=== PATIENT | female | born 1950 | race Caucasian/White ===

== ENCOUNTER → 2025-01-19 | Outpatient (CLI) | payer MEDICARE, OTHER ==
[~2025-01-19] MED LIST: ACET500 PO; ASPI81CH PO; CITALOPRAM HBR10 MG PO; DOCU100 PO; EUTHYROX50 MCG PO; OMEP20ER PO; OXAYDO5 M2 PO
[2025-01-19 15:10] LABS: BASOPHILS ABSOLUTE AUTO 0.06 K/mm3 (0.00-0.23); BASOPHILS PERCENT AUTO 1 % (0-2); EOSINOPHILS ABSOLUTE AUTO 0.10 K/mm3 (0.00-0.68); EOSINOPHILS PERCENT AUTO 1 % (0-6); Hematocrit 39.7 % (33.0-51.0); Hemoglobin 12.9 g/dL (11.5-16.0); IMMATURE GRAN ABSOLUTE AUTO 0.03 K/mm3 (0.00-0.10); IMMATURE GRAN PERCENT AUTO 0 % (0-1); LYMPHOCYTES ABSOLUTE AUTO 1.62 K/mm3 (0.84-5.20); LYMPHOCYTES PERCENT AUTO 15 % (21-46); MONOCYTES ABSOLUTE AUTO 0.66 K/mm3 (0.16-1.47); MONOCYTES PERCENT AUTO 6 % (4-13); Mean Corpuscular HGB Conc 32.5 g/dL (31.5-36.5); Mean Corpuscular Volume 87 fL (80-100); NEUTROPHILS ABSOLUTE AUTO 8.05 K/mm3 (1.96-9.15); NEUTROPHILS PERCENT AUTO 76 % (41-73); NRBC ABSOLUTE 0.00 K/mm3 (0.00-0.02); NRBC Auto 0.0 /100 WBC (0.0-0.2); Platelet Count 390 K/mm3 (150-400); RDW Coefficient Variation 13.7 % (11.7-14.2); RDW Standard Deviation 43.2 fL (35.1-46.3)
[2025-01-19 15:56] LABS: Anion Gap 9.0 mmol/L (3-11); Blood Urea Nitrogen 15.0 mg/dL (8-24); CO2, Blood 26.0 mmol/L (21-32); Calcium, Blood 9.1 mg/dL (8.5-10.1); Chloride, Blood 104.0 mmol/L (98-108); Creatinine, Blood 0.89 mg/dL (0.40-1.00); Glucose, Blood 145.0 mg/dL (70-99); Potassium, Blood 3.9 mmol/L (3.5-5.5); Sodium, Blood 135.0 mmol/L (136-145)
== END ==
LOC: LAB SHORT 14:59 → LAB 14:59
PROVIDERS: Orthopaedic Surgery
DX: Z01.812 Encounter for preprocedural laboratory examination (principal); M17.11 Unilateral primary osteoarthritis, right knee; Z01.818 Encounter for other preprocedural examination
CPT/HCPCS: 80048; 85025

== ENCOUNTER 2025-01-26 05:59 | Day surgery (SDC) | payer MEDICARE, OTHER ==
[2025-01-26] VITALS (14 sets, daily range): BP systolic 96–146; BP diastolic 50–84
[~2025-01-26] VITALS: Ht 165.1 cm; Wt 83.1 kg
[~2025-01-26 05:59] MED LIST changes: -ACET500 PO; -ASPI81CH PO; -CITALOPRAM HBR10 MG PO; -DOCU100 PO; -OXAYDO5 M2 PO
[2025-01-26] MEDS ORDERED: Chlorhexidine Mouth Care 15 ML UDC MT SCH (06:20)
[2025-01-26] MEDS ORDERED: Tranexamic Acid 100 ML IV SCH (06:20)
[2025-01-26] MEDS ORDERED: Ropivacaine 0.5% HCl/Pf 123.125 MG,EPINEPHrine HCL 0.25 MG,Ketorolac Tromethamine 15 MG... INFIL SCH (06:20)
[2025-01-26] MEDS ORDERED: CeFAZolin Sodium 2,000 MG in NS 100 ML IV SCH ×2 (06:20→15:30)
[2025-01-26] MEDS ORDERED: CITALOPRAM HBR10 MG PO ×2 (06:26)
[2025-01-26] MEDS ORDERED: CeFAZolin Sodium 2,000 MG VIAL ONE (06:49)
[2025-01-26] MEDS ORDERED: FentaNYL Citrate 50 MCG/ML 2 ML Injection ONE (07:01)
[2025-01-26] MEDS ORDERED: Bupivacaine 0.5% HCl 5 MG/ML 30MLVIAL ONE (07:01)
[2025-01-26] MEDS ORDERED: Midazolam HCl 1MG / ML 2ML Vial IV PRN (07:05)
--- NOTE | 2025-01-26 07:19 | NUR ---
RINGS TO RIGHT RING FINGER AND LEFT RING FINGER TAPED IN PLACE AND WAIVER SIGNED PER PATIENT REQUEST. KNEE HIGH LOBO HOSE WITH CALF PAS APPLIED TO LLE. SIMONN X2 AMPULES USED TO CLEAN INSIDE NARES PER DR ARTEAGA ORDER. SURGICAL CHECKLIST STATES X3, BUT X2 USED PER ORDER. AT BEDSIDE FOR PRE-OP.
[2025-01-26] MEDS ORDERED: Ondansetron HCl 2 MG / ML 2ML Vial IV PRN ×2 (07:35→08:25)
[2025-01-26] MEDS ORDERED: Metoclopramide HCl 5MG / ML 2ML Vial IV PRN ×2 (07:35→08:25)
[2025-01-26] MEDS ORDERED: HYDROmorphone HCl/Pf 1MG SYR IV PRN ×2 (07:40→08:25)
[2025-01-26] MEDS ORDERED: Magnesium Hydroxide Conc 10 ML UDC PO PRN (07:40)
[2025-01-26] MEDS ORDERED: FLU VACC TS2025(65UP)/MF59C/PF 45 MCG/0.5 ML SYRINGE IM SCH (08:00)
[2025-01-26] MEDS ORDERED: FentaNYL Citrate 50 MCG/ML 2 ML Injection IV PRN ×3 (08:25→08:30)
[2025-01-26] MEDS ORDERED: Phenylephrine HCl 100 MCG/ML-NS 10MLSYR (1MG/10ML) ONE (08:47)
--- NOTE | 2025-01-26 10:19 | NUR ---
POST-OP PATIENT ARRIVES @1000, R TKA, AQUACEL AND CARLOS IN PLACE WITH ICE MACHINE. TOLOERATINGCL INTAKE, DENIES PAIN. UNABLE TO WIGGLE TOES AT THIS TIME. DECREASED SENSATION TO BILAT LE. SPINAL BLOCK IN OR. AOX4, ABLE TO MAKE NEEDS KNOWN. VSS. CALL LIGHT IN REACH.
[2025-01-26] MEDS ORDERED: Ketorolac Tromethamine 15mg Vial IV SCH (12:00)
[2025-01-26] MEDS ORDERED: ACET500 PO ×2 (13:12)
[2025-01-26] MEDS ORDERED: ASPI81CH PO ×2 (13:13)
[2025-01-26] MEDS ORDERED: OXAYDO5 M2 PO ×2 (13:14)
[2025-01-26] MEDS ORDERED: DOCU100 PO ×2 (13:14)
--- NOTE | 2025-01-26 15:51 | NUR ---
DISCHARGE PATIENT WORKS WITH PT, AMBULATES, VOIDING, TOLERATING PO INTAKE. DRESSING IS C/D/I. VSS. IV TAKEN OUT INTACT AND RIDE IS HERE, PATIENT IS WHEELED OUT TO AWAITING CAR.
== END 2025-01-26 16:41 | disposition home or self-care (01) ==
LOC: ORSCMMR 05:59 → ORD 07:30 → SURS 09:55 → ORSCMMR 16:41 → ORD 02-16 09:30
PROVIDERS: Orthopaedic Surgery
PROC: 0SRC0JA Replacement of Right Knee Joint with Synthetic Substitute, Uncemented, Open Approach (ICD-10-PCS; principal; 2025-01-26 07:30)
PROC: 8E0Y0CZ Robotic Assisted Procedure of Lower Extremity, Open Approach (ICD-10-PCS; principal; 2025-01-26 07:30)
DX: M17.11 Unilateral primary osteoarthritis, right knee (principal); E66.9 Obesity, unspecified; Z68.30 Body mass index [BMI] 30.0-30.9, adult; E03.9 Hypothyroidism, unspecified; Z79.899 Other long term (current) drug therapy
CPT/HCPCS: 27447; 0055T; 73560-RT; 97110; 97116; 97161; A9270; C1713; C1776; J0166; J0690; J0735; J1885; J2250; J2371; J2704; J2795; J3010; J7120